=== PATIENT | female | born 1955 | race Caucasian/White ===

== ENCOUNTER → 2017-03-19 | Outpatient (CLI) | payer OTHER ==
[~2017-03-19] MED LIST: ACETAMINOPHEN325 M1 PO; ACETAZOLAMIDE250 M1 PO; BENTYL 10 MG CA10 M1 PO; CALCIUM 500 +1 EAC5 PO; CITRATE OF MAG296 ML PO; COLACE 100 MG100 MG PO; COLACE100 MG PO; DIAMOX PO; DILANTIN 100 M100 MG PO; DILANTIN100 MG PO; FISH OIL 500 M1 EAC3 PO; FLEXERIL PO; FOSAMAX 70 MG T70 MG PO; GOLYTELY PACKE1 EACH PO; GOLYTELY4000 M1 GT; IBUPROFEN 600600 M1 PO; KEPPRA 500 MG500 M1 PO; KLOR-CON 1010 MEQ PO; LEXAPRO 10 MG T10 MG PO; MIRALAX17 GM PO; MIRALAX255 GM PO; NORCO 5-325 TA1 EACH PO; ORPHENADRINE C100 M2 PO; PERCOCET 5-3251 EACH PO; PHENERGAN 25 MG25 M1 PO; PHENOBARBITAL32.4 M2 PO; REMERON15 MG PO; ROBAFEN AC SYR120 ML PO; SENNA PO; SYNTHROID25 MCG PO; TAMSULOSIN HCL0.4 M1 PO; TRAMADOL 50 MG50 MG PO; UNKNOWN PAIN MED; VICODIN 5-5001 EACH PO; XANAX 0.25 MG0.25 MG PO
== END ==
LOC: RAD 10:03
DX: M25.512 Pain in left shoulder (principal)

== ENCOUNTER 2017-06-01 12:00 | Emergency (ER) | payer OTHER ==
[~2017-06-01] VITALS: Ht 165.1 cm; Wt 49.0 kg
[2017-06-01 13:11] VITALS: BP 134/85
== END 2017-06-01 13:12 | disposition home or self-care (01) ==
LOC: ER 12:00
DX: R56.9 Unspecified convulsions (principal); F32.9 Major depressive disorder, single episode, unspecified; E03.9 Hypothyroidism, unspecified; F41.9 Anxiety disorder, unspecified; M81.0 Age-related osteoporosis without current pathological fracture; K59.09 Other constipation

== ENCOUNTER 2018-06-09 11:47 | Emergency (ER) | payer OTHER ==
[~2018-06-09] VITALS: Ht 165.1 cm; Wt 47.6 kg
[2018-06-09 12:16] VITALS: BP 148/81
== END 2018-06-09 12:16 | disposition home or self-care (01) ==
LOC: ER 11:47
DX: R56.9 Unspecified convulsions (principal); F32.9 Major depressive disorder, single episode, unspecified; E03.9 Hypothyroidism, unspecified; K59.00 Constipation, unspecified; M81.0 Age-related osteoporosis without current pathological fracture; F41.9 Anxiety disorder, unspecified; W18.30XA Fall on same level, unspecified, initial encounter; Y93.89 Activity, other specified; Y92.513 Shop (commercial) as the place of occurrence of the external cause; Y99.8 Other external cause status

== ENCOUNTER 2019-08-12 15:23 | Emergency (ER) | payer OTHER ==
[~2019-08-12] VITALS: Ht 165.1 cm; Wt 49.9 kg
--- NOTE | ~2019-08-12 | EMS ---
[facility] [address] [place] [address] EMS Patient Care Report Name: VICENTE HOFFMAN Room #: DEP MONI Aguilar#: [id number] Admission: 08/12/19 Attend Phys: Discharge: 08/12/19 Date of : 57 Report #: [id number] THIS REPORT FOR: //name// Report Transmitted: 08/12/2019 15:21 EMS Care Summary [place], [place]/[facility] Incident [id number] @ 08/12/2019 14:51 Incident Location [address] [facility] [place] [address] Patient VICENTE HOFFMAN Female, 63 Years 1955 Patient Address [address], [address] [place] [address] Patient History Epilepsy, Patient Medications Keppra, Chief Complaint ALTERED MENTAL STATUS Disposition Transported No Lights/[place] Dispatch Reason Convulsions/Seizure Transported To [facility] Narrative BYSTANDERS REPORT FINDING PATIENT ON THE FLOOR IN THE WOMENS CLOTHES SECTION. BYSTANDERS REPORT PATIENT WAS HAVING SEIZURE LIKE ACTIVITY. AT THAT TIME EMS WAS SUMMONED. BYSTANDERS REPORT PATIENT WAS ALONE AND SEIZURE LASTING SEVERAL MINUTES. P37 ON SCENE REPORT PATIENT IS CONFUSED AND NOT ANSWERING QUESTIONS. EMS ARRIVING ON SCENE TO FIND PATIENT BEING PROPPED UP BY A BYSTANDER AND P37 ATTENDING. PATIENT IS ALERT, CONFUSED, ONLY GIVING 1ST NAME, NO OBVIOUS SIGNS [facility] [address] [place] [address] EMS Patient Care Report Name: VICENTE HOFFMAN Room #: DEP ER Johanna.#: [id number] Admission: 08/12/19 Attend Phys: Discharge: 08/12/19 Date of : 57 Report #: [id number] OF INJURY, WITH UPPER EXTREMITY TREMORS. PATIENT VITALS ASSESSED, PATIENT PICKED UP AND MOVED TO THE COT. PATIENT SECURED WITH ALL BELTS AND MOVED TO THE UNIT. PATIENT ENROUTE REMAINING CONFUSED. SHE CAN NOW GIVE FIRST AND LAST NAME BUT COULD GIVE NO MEDICAL HISTORY. PATIENT RESTING COMFORTABLY ENROUTE. RADIO REPORT TO [facility]. PATIENT CARE TRANSFERRED TO RN ROOM 6 UPON ARRIVAL. MEDICAL HISTORY OBTAINED FROM RN Initial Vitals @15:12P: 90,R: 36,SpO2: 100, @15:06P: 89,R: 56,SpO2: 72, @15:07P: 90,R: 19,BP: 154/88,GCS: 12,CO: 0,SpO2: 99,Revised Trauma: 11, @15:11P: 89,R: 31,CO: 0,SpO2: 99, @15:04P: 55,SpO2: 73, @15:13P: 89,R: 36, @15:14P: 91,R: 21,BP: 165/92,Pain: 0/10,GCS: 14,Glucose: 150,Revised Trauma: 12, @15:09P: 90,R: 18,BP: 162/95,GCS: 14,SpO2: 98,Revised Trauma: 12, Assessments @15:00MENTAL:Confused,Person Oriented,SKIN:Pale,HEENT:Head/Face: No Abnormalities,Eyes: No Abnormalities,Neck/Airway: No Abnormalities,LUNG SOUNDS:General: No Abnormalities,ABDOMEN:General: No Abnormalities,PELVIS//GI:No Abnormalities,EXTREMITIES:Left Arm: No Abnormalities,Right Arm: No Abnormalities,Left Leg: No Abnormalities,Right Leg: No Abnormalities,PULSE:NEURO:Tremors, Impression Altered Mental Status Procedures @15:00ALS AssessmentResponse: Unchanged@15:08Saline Lock 5cc (20 ga) Site: Hand-LeftResponse: UnchangedSucceeded@15:05Oxygen FlowRate: 3 Device: Nasal Cannula (NC) Response: Unchanged@15:093-Lead ECGResponse: Unchanged Timeline 14:50,Call Received 14:50,Dispatch Notified 14:51,Dispatched 14:52,En Route 14:57,On Scene 15:00,At Patient 15:00,ALS Assessment,Response: Unchanged 15:04,BP: / M,PULSE: 55,RR: R,SPO2: 73 Ox,ETCO2: ,BG: ,PAIN: ,GCS: , 15:05,Oxygen FlowRate: 3 Device: Nasal Cannula (NC) Response: Unchanged 15:06,BP: / M,PULSE: 89,RR: 56 R,SPO2: 72 Ox,ETCO2: ,BG: ,PAIN: ,GCS: , [facility] [address] [place] [address] EMS Patient Care Report Name: DALTONVICENTE Room #: [facility] MONI Aguilar#: [id number] Admission: 08/12/19 Attend Phys: Discharge: 08/12/19 Date of : 57 Report #: [id number] 15:07,BP: 154/88 M,PULSE: 90,RR: 19 R,SPO2: 99 Ox,ETCO2: ,BG: ,PAIN: ,GCS: 12, 15:08,Saline Lock 5cc 20 ga Site: Hand-Left,Response: UnchangedSucceeded, 15:09,3-Lead ECG,Response: Unchanged 15:09,BP: 162/95 M,PULSE: 90,RR: 18 R,SPO2: 98 Ox,ETCO2: ,BG: ,PAIN: ,GCS: 14, 15:11,BP: / M,PULSE: 89,RR: 31 R,SPO2: 99 Ox,ETCO2: ,BG: ,PAIN: ,GCS: , 15:11,Depart Scene 15:12,BP: / M,PULSE: 90,RR: 36 R,SPO2: 100 Ox,ETCO2: ,BG: ,PAIN: ,GCS: , 15:13,BP: / M,PULSE: 89,RR: 36 R,SPO2: Ox,ETCO2: ,BG: ,PAIN: ,GCS: , 15:14,BP: 165/92 M,PULSE: 91,RR: 21 R,SPO2: Ox,ETCO2: ,B,PAIN: 0,GCS: 14, 15:18,At Destination 15:35,Call Closed Disclaimer [email or web address] Copyright 2019 [employer] This EMS Care Summary contains data elements from the applicable legal record (which may be displayed differently). It is designed to provide pertinent information for the following purposes: continuity of care, clinical quality, and state data reporting. The complete legal record is available to ED staff and administrators of the receiving hospital in [employer] Patient Tracker. All data is provided "as is."
[2019-08-12 16:07] VITALS: BP 146/86
== END 2019-08-12 16:15 | disposition home or self-care (01) ==
LOC: ER 15:23
DX: R56.9 Unspecified convulsions (principal); F32.9 Major depressive disorder, single episode, unspecified; F41.9 Anxiety disorder, unspecified; E03.9 Hypothyroidism, unspecified; M81.0 Age-related osteoporosis without current pathological fracture

== ENCOUNTER 2019-08-12 18:19 | Emergency (ER) | payer OTHER ==
[~2019-08-12] VITALS: Ht 160 cm; Wt 47.6 kg
== END 2019-08-12 18:59 | disposition left against medical advice (07) ==
LOC: ER 18:19
DX: R56.9 Unspecified convulsions (principal); F32.9 Major depressive disorder, single episode, unspecified; F41.9 Anxiety disorder, unspecified; M81.0 Age-related osteoporosis without current pathological fracture; E03.9 Hypothyroidism, unspecified